=== PATIENT | male | born 1985 | race Caucasian/White ===

== ENCOUNTER 2022-01-01 15:51 | Inpatient (IN) | payer BC, SELFPAY ==
[2022-01-01] VITALS (10 sets, daily range): BP systolic 111–163; BP diastolic 49–91; PULSE 86–111; RESP 12–24; TEMP 37–37.3; O2SAT 96–100; BMI 23.5; BMI 23.8
--- NOTE | 2022-01-01 15:59 | W.ED.GENADLT ---
HPI - General Adult General: Chief complaint: General Medical Stated complaint: hyperglycemia Time Seen by Provider: 01/01/22 15:51 Source: patient and EMS Mode of arrival: EMS Limitations: no limitations History of Present Illness: This patient known insulin requiring diabetic who has an insulin pump states that he is down here on a float trip with family. He states over the past week or so he has had some difficulty with his insulin infusion set up in that the needle that penetrates his skin to allow his continuous infusion has been somewhat difficult to keep under his skin. He he states he was out floating with the family today and became progressively weak and realize he was getting dehydrated and that likely his blood sugar was elevated. He wind up calling EMS to be transported. EMS noted his blood sugar was elevated in the 500 range gave him a fluid bolus as well as Zofran and his blood sugars were down in the 400s during transport. Patient denies any ongoing fever, recent illness, abdominal pain etc. He has had several bouts of emesis this afternoon. No one else is ill at his green party. He otherwise has no chronic illness. He denies any alcohol intake today. Associated symptoms: Reports nausea and vomiting; Deny chest pain, dyspnea, headache(s), rash, palpitations or syncope Review of Systems Const: Reports: fatigue; Denies: fever(s), chills or body aches Eyes: Denies: change in vision or blurry vision ENMT: Denies: throat pain or odynophagia Card: Denies: chest pain, palpitations, irregular heart rhythm, syncope or pre-syncope Resp: Denies: dyspnea, productive cough or non-productive cough GI: Reports: nausea and vomiting; Denies: abdominal pain, hematemesis or diarrhea : Denies: flank pain, difficulty urinating, dysuria or urinary frequency Musc: Denies: neck pain, back pain, extremity pain or extremity swelling Skin/Breast: Denies: rash Neuro: Denies: headache(s), numbness in extremities or weakness in extremities Psych: Denies: anxiety or depression Physical Exam Narrative: EXAM NARRATIVE: Makes good eye contact. His speech is goal-directed. He is alert and cooperative. Const: COMMON NORMALS: no acute distress, average body habitus and patient oriented x3 GENERAL APPEARANCE: cooperative and comfortable HENMT: COMMON NORMALS: normocephalic, atraumatic, Normal nasal mucous membranes and turbinates present, moist oral mucous membranes and oropharynx normal HEAD & SCALP: normocephalic and atraumatic NOSE: Normal nasal mucous membranes and turbinates present Eye: COMMON NORMALS: Equal, round and reactive pupils present, EOMs intact bilaterally and conjunctivae normal CONJUNCTIVA: Yes conjunctivae normal PUPIL: Yes Equal, round and reactive pupils present Neck/C-Spine: COMMON NORMALS: full ROM and no lymphadenopathy Chest: COMMONS NORMALS: normal inspection of the chest Resp: COMMON NORMALS: normal respiratory effort, No retractions, No use of accessory muscles and clear to auscultation bilaterally AUSCULTATION: clear to auscultation bilaterally Cardio: COMMON NORMALS: regular rate, regular rhythm, No murmurs present (Cardio) and Peripheral pulses 2+ throughout RATE: regular rate RHYTHM: regular rhythm PERIPHERAL PULSES: Peripheral pulses 2+ throughout GI: COMMON NORMALS: Normal to inspection, nondistended, normoactive bowel sounds present, Soft to palpation, non-tender and no masses PALPATION: Yes Soft to palpation Back/Pelvis: COMMON NORMALS: thoracic and lumbar spine normal to inspection, no thoracic nor lumbar tenderness and thoraco-lumbar ROM normal Extremity: COMMON NORMALS: normal to inspection, full ROM, capillary refill normal and no pedal edema Neuro: COMMON NORMALS: patient oriented x3, moves all extremities, no focal motor deficits and no sensory deficits noted CRANIAL NERVES: Yes CN normal except as noted Psych: COMMON NORMALS: mental status grossly normal Skin: COMMON NORMALS: no rashes or lesions noted, no wounds and turgor normal GENERAL SKIN EXAM: no rashes or lesions noted and turgor normal Course Reevaluation(s): Reevaluation #1: We will cover him with subcutaneous insulin for the next or 2 until his pump is really connected. Time: 16:27 Reevaluation #2: Patient is doing well. His sugars are down in the 230 mg percent range at this time. In addition to the 8 units of regular insulin he received when he first arrived he is now able to reimplant his insulin pump and it is functioning normally. He has had 2 L of fluids and is drinking considerable amount of fluids. He is alert and hungry and is eating as well as drinking. Go ahead and repeat a chemistry to ensure that his gap is closing somewhat prior to discussion of discharge. Time: 18:51 Reevaluation #3: The patient is doing well. He is eating and drinking and his blood sugars are again in a more reasonable range. His CO2 and gap are still significant. I discussed with the patient and also discussed with the hospitalist. We will go ahead and give him additional fluids over the next hour and then reassess him at that time. Time: 20:06 Consultations: Consultation #1: Discussed with hospitalist we will go ahead and place him in observation continue with hydration and monitor his electrolytes and sugars. Time: 21:11 Vital Signs: Vital signs: Vital Signs Pulse Rate 107 H 01/01/22 18:16 Respiratory Rate 20 H 01/01/22 18:16 Blood Pressure 111/49 01/01/22 18:16 Pulse Oximetry 100 01/01/22 18:16 MDM - General Adult Medical Decision Making Patient with a longstanding history of diabetes on insulin pump was having a malfunction of his insulin pump over the past several days. He is visiting here and was on the [place] the [place] a float trip and became dehydrated and had persistent vomiting with elevated blood sugars. We have attempted to hydrate him in the emergency department and his sugars have come down nicely however he still has a significant gap and dehydration I think would be in his best interest to continue hydration and antiemetics and monitoring as an observation patient. No evidence of other ongoing conditions at this time. Lab Data : 01/01/22 16:00 01/01/22 19:09 Laboratory Results WBC 16.2 10^3/uL (4.0-10.0) H 01/01/22 16:00 RBC 5.35 10^6/uL (4.1-5.3) H 01/01/22 16:00 Hgb 15.8 g/dL (11.7-16.6) 01/01/22 16:00 Hct 47.9 % (42.0-52.0) 01/01/22 16:00 MCV 89.5 fl (80-94) 01/01/22 16:00 MCH 29.5 pg (28.0-34.0) 01/01/22 16:00 MCHC 33.0 g/dL (30.0-36.0) 01/01/22 16:00 RDW 12.0 % (12.1-15.1) L 01/01/22 16:00 Plt Count 431 10^3/cmm (130-400) H 01/01/22 16:00 MPV 11.5 fL (7.4-10.4) H 01/01/22 16:00 Neut % (Auto) 88.1 % 01/01/22 16:00 Lymph % (Auto) 5.5 % 01/01/22 16:00 [place] % (Auto) 5.2 % 01/01/22 16:00 Eos % (Auto) 0.1 % 01/01/22 16:00 Baso % (Auto) 0.4 % 01/01/22 16:00 Neut # (Auto) 14.25 10^3/uL (1.8-7.7) H 01/01/22 16:00 Lymph # (Auto) 0.9 10^3/uL (0.8-4.8) 01/01/22 16:00 [place] # (Auto) 0.8 10^3/uL (0.2-0.9) 01/01/22 16:00 Eos # (Auto) 0.0 10^3/uL (0.0-0.8) 01/01/22 16:00 Baso # (Auto) 0.1 10^3/uL (0.0-0.1) 01/01/22 16:00 Nucleated RBC % (auto) 0 % 01/01/22 16:00 Nucleated RBCs # 0.0 /100WBC 01/01/22 16:00 Sodium 134 mmol/L (136-145) L 01/01/22 19:09 Potassium 4.8 mmol/L (3.5-5.1) 01/01/22 19:09 Chloride 98 mmol/L (98-107) 01/01/22 19:09 Carbon Dioxide 11 mmol/L (22-29) L 01/01/22 19:09 Anion Gap 29.8 (5-19) H 01/01/22 19:09 BUN 24 mg/dL (6-20) H 01/01/22 19:09 Creatinine 1.0 mg/dL (0.7-1.2) 01/01/22 19:09 GFR Calculation 84.1 mL/min (90-130) L 01/01/22 19:09 Glucose 273 mg/dL (65-115) H 01/01/22 19:09 POC Glucose 253 mg/dL (70-110) H 01/01/22 18:40 Calculated Osmolality 292 mOsm/kg (285-295) 01/01/22 19:09 Calcium 8.2 mg/dL (8.5-10.5) L 01/01/22 19:09 Total Bilirubin 0.8 mg/dL (0.15-1.2) 01/01/22 16:00 AST 27 U/L (0-40) 01/01/22 16:00 ALT 24 U/L (0-41) 01/01/22 16:00 Alkaline Phosphatase 87 IU/L (40-130) 01/01/22 16:00 Total Protein 8.0 g/dL (6.6-8.7) 01/01/22 16:00 Albumin 5.4 g/dL (3.5-5.2) H 01/01/22 16:00 Globulin 2.6 g/dL (1.3-4.6) 01/01/22 16:00 Urine Color Yellow (Yellow) 01/01/22 16:06 Urine Appearance Clear (CLEAR) 01/01/22 16:06 Urine pH 5 (5-7) 01/01/22 16:06 Ur Specific [place] 1.020 (1.005-1.030) 01/01/22 16:06 Urine Protein Neg (Negative) 01/01/22 16:06 Urine Glucose (UA) 4+ (Normal) H 01/01/22 16:06 Urine Ketones 3+ (Negative) H 01/01/22 16:06 Urine Blood Neg (Negative) 01/01/22 16:06 Urine Nitrate Negative (Negative) 01/01/22 16:06 Urine Bilirubin Neg (Negative) 01/01/22 16:06 Urine Urobilinogen Norm mg/dL (Negative) 01/01/22 16:06 Ur Leukocyte Esterase Negative (Negative) 01/01/22 16:06 Serum Ketones Positive (Negative) H 01/01/22 16:00 Discharge Plan Discharge Patient Disposition: Placed in Observation Clinical Impression: Acute hyperglycemia, Acidosis due to type 1 diabetes mellitus, Fluid volume depletion Condition: Stable Coding Level of Care Code ED Hourly Team Members for Chg Fwd Exam Comprehensive
[2022-01-01 16:06] LABS: Basophils # 0.1 10^3/uL (0.0-0.1); Basophils % 0.4 %; Eosinophils % 0.1 %; Hematocrit 47.9 % (42.0-52.0); Hemoglobin 15.8 g/dL (11.7-16.6); Lymphocytes # 0.9 10^3/uL (0.8-4.8); Lymphocytes % 5.5 %; Mean Corpuscular Hemoglobin 29.5 pg (28.0-34.0); Mean Corpuscular Volume 89.5 fl (80-94); Mean Platelet Volume 11.5 fL (7.4-10.4); Monocytes # 0.8 10^3/uL (0.2-0.9); Monocytes % 5.2 %; Neutrophils # 14.25 10^3/uL (1.8-7.7); Neutrophils % 88.1 %; Nucleated Red Blood Cells % 0 %; Platelet Count 431 10^3/cmm (130-400); Red Blood Count 5.35 10^6/uL (4.1-5.3); White Blood Count 16.2 10^3/uL (4.0-10.0)
[2022-01-01] MEDS: lactated ringers 1,000 ML 999 ML IV ×2 (16:07→20:16)
[2022-01-01 16:08] LABS: Glucose Point of Care 454 mg/dL (70-110)
[2022-01-01 16:13] LABS: Add Urine Microscopic? NO; Charge for UA Resulting for Rev
[2022-01-01 16:26] LABS: Alanine Aminotransferase 24 U/L (0-41); Albumin Level 5.4 g/dL (3.5-5.2); Alkaline Phosphatase 87 IU/L (40-130); Aspartate Amino Transferase 27 U/L (0-40); Carbon Dioxide 13 mmol/L (22-29); Chloride 84 mmol/L (98-107); Globulin 2.6 g/dL (1.3-4.6); Sodium 130 mmol/L (136-145); Total Bilirubin 0.8 mg/dL (0.15-1.2)
[2022-01-01 16:29] LABS: Ketone (Acetest) Serum Positive (Negative)
[2022-01-01 16:32] LABS: Urine Appearance Clear (CLEAR); Urine Color Yellow (Yellow); pH Urine 5 (5-7)
[2022-01-01 16:33] LABS: Bilirubin Urine Neg (Negative); Blood Urine Neg (Negative); Glucose Urine UA 4+ (Normal); Ketones Urine 3+ (Negative); Leukocyte Esterase Urine Negative (Negative); Nitrate Urine Negative (Negative); Protein Urine Neg (Negative); Urobilinogen Urine Norm (Negative)
[2022-01-01 17:01] LABS: Glucose Point of Care 428 mg/dL (70-110)
[2022-01-01] MEDS: insulin lispro 100 unit/1 mL 8 UNIT SUBCUT (17:02)
[2022-01-01 17:13] LABS: Anion Gap 38.2 (5-19); Blood Urea Nitrogen 28 mg/dL (6-20); Glomerular Filtration Rate 68.1 mL/min (90-130); Osmolality Calculated 301 mOsm/kg (285-295); Potassium 5.2 mmol/L (3.5-5.1)
[2022-01-01 17:14] LABS: Calcium 9.8 mg/dL (8.5-10.5)
[2022-01-01 17:17] LABS: Glucose 557 mg/dL (65-115)
[2022-01-01 17:44] LABS: Glucose Point of Care 381 mg/dL (70-110)
[2022-01-01 18:42] LABS: Glucose Point of Care 253 mg/dL (70-110)
--- NOTE | 2022-01-01 18:55 | PC.NURSE ---
PT placed on continuous NIBP, SpO2, and CM
[2022-01-01 19:30] LABS: Anion Gap 29.8 (5-19); Blood Urea Nitrogen 24 mg/dL (6-20); Calcium 8.2 mg/dL (8.5-10.5); Carbon Dioxide 11 mmol/L (22-29); Chloride 98 mmol/L (98-107); Glomerular Filtration Rate 84.1 mL/min (90-130); Glucose 273 mg/dL (65-115); Osmolality Calculated 292 mOsm/kg (285-295); Potassium 4.8 mmol/L (3.5-5.1); Sodium 134 mmol/L (136-145)
[2022-01-01 21:13] LABS: Glucose Point of Care 181 mg/dL (70-110)
[2022-01-01] MEDS: ondansetron 2 mg/ML SDV 2 mL 4 MG IVP (21:17)
--- NOTE | 2022-01-01 21:24 | P.HP_ITS ---
Providers/Chief Complaint Chief Complaint: hyperglycemia History of Present Illness Piter Dunn is a 36 year old male with past medical history of diabetes on insulin pump, came in with chief complaint of weakness, nausea and vomiting, started today he was having difficulty using his insulin pump for about a week time, he was out floating today with the family and then he started experiencing above-mentioned complaint. When EMS arrived on the scene his blood sugar was in 500s. Upon arrival in the ER he was found to be in DKA. He has been continued on insulin pump, as well as currently on DKA protocol. Review of Systems General: Reports: 10 or more systems reviewed and unremarkable except in HPI and below Narrative: 67-year-old currently not in acute distress being admitted for chest pain evaluation Const: Denies: fever(s), chills, body aches, change in appetite or diaphoresis Card: Denies: palpitations, edema, swelling of feet/ankles, dyspnea on exertion, orthopnea or leg pain with exertion Resp: Denies: dyspnea, productive cough, wheezing or pain on inspiration GI: Reports: nausea and vomiting; Denies: abdominal pain, diarrhea or constipation : Denies: flank pain or difficulty urinating Musc: Denies: back pain, extremity pain or extremity swelling Neuro: Denies: headache(s), difficulty walking or confusion Medications/Allergies Allergies Allergy/AdvReac Type Severity Reaction Status Date / Time No Known Allergies Allergy Verified 01/01/22 16:26 Vitals/I&O/Wt Last Vital Signs Pulse 107 H 01/01/22 18:16 Resp 20 H 01/01/22 18:16 BP 111/49 01/01/22 18:16 Pulse Ox 100 01/01/22 18:16 Weight last 48 hrs Weight 68.039 kg Physical Exam Const: COMMON NORMALS: patient oriented x3 HENMT: COMMON NORMALS: normocephalic and atraumatic HEAD & SCALP: normocephalic and atraumatic Resp: COMMON NORMALS: clear to auscultation bilaterally AUSCULTATION: clear to auscultation bilaterally Cardio: COMMON NORMALS: regular rate, regular rhythm, S1 normal heart sound present, S2 normal heart sound present, No gallops present (Cardio), No murmurs present (Cardio), No rub (Cardio) and Peripheral pulses 2+ throughout RATE: regular rate RHYTHM: regular rhythm HEART SOUNDS: S1 normal heart sound present and S2 normal heart sound present PERIPHERAL PULSES: Peripheral pulses 2+ throughout GI: COMMON NORMALS: Normal to inspection, nondistended, normoactive bowel sounds present, Soft to palpation, non-tender, No hepatosplenomegaly present and no masses AUSCULTATION: Yes normoactive bowel sounds PALPATION: Yes Soft to palpation and Yes No hepatosplenomegaly present RECTAL EXAM: Yes deferred Extremity: COMMON NORMALS: no clubbing, cyanosis or edema and no pedal edema Neuro: COMMON NORMALS: patient oriented x3 Data : 01/02/22 03:17 01/02/22 03:17 A&P Assessment and plan (1) Diabetes: Status: Acute (2) Dehydration: Status: Acute (3) Metabolic acidosis: Status: Acute (4) DKA (diabetic ketoacidosis): Status: Acute Plan 36 year old male with past medical history of diabetes on insulin pump, came in with chief complaint of weakness, nausea and vomiting, started today. Assessment: DKA. Increased anion gap metabolic acidosis secondary to DKA Dehydration Plan: Currently his insulin pump is working patient will continue with his insulin pump. We will continue to monitor his BMP electrolytes finger stick glucose and accordingly make necessary changes. Lovenox for DVT prophylaxis. CODE STATUS: Full code Attestations Medical Necessity Statement*: Patient is to be in hospital for management of DKA. Anticipated length of stay greater than 2 midnights. Time Spent in Patient Care: Greater than 35 minutes (>than 50% of time spe nt in counselling and/or direct pt care on unit) . Coding Level of Care Code Acute Stringed Instrument Repairer for [facility] Fwd Exam Detailed Diagnoses Diabetes E11.9 Dehydration E86.0 Metabolic acidosis E87.2 DKA (diabetic ketoacidosis) E11.10
[2022-01-01 21:28] LABS: ABG PCO2 30.3 mmHg (35-45); ABG PH Result 7.27 (7.35-7.45); Alveolar-Arterial Oxygen Gradi 3.5 mmHg (5-10); Arterial Blood Gas Hematocrit 39.8 % (42-52); Base Excess ABG -11.7 mmol/L (-2.0-2.0); Blood Gas Allen Test Pos; Blood Gas Sample Site Radial, left; Blood Gas Sample Type Arterial; Carboxyhemoglobin 0.5 %THgb (0.4-20.1); HCO3 ABG 13.9 mmol/L (22-26); HGB O2 Sat 95.2 % (95-100); Ionized Calcium Level - ABG 1.2 mmol/L (1.1-1.4); Methemoglobin 0.8 % (0.4-1.5); Oxygen Device ROOM AIR; Oxygen Saturation ABG 96.4; PO2 ABG 82.4 mmHg (80.0-100.0); Potassium Level - ABG 4.2 mmol/L (3.5-5.0)
--- NOTE | 2022-01-01 22:48 | PC.NURSE ---
Arrived to Med Surg floor @[id number]. Charge Nurse notified pt was to be moved to ICU per MD request. Report given to ANUPAM Ledesma @ [phone]. Transported pt to ICU
[2022-01-01] MEDS: enoxaparin 40 mg/0.4 mL Syringe SUBCUT (23:07)
[2022-01-01] MEDS: lactated ringers 1,000 ML 125 ML IV (23:09)
[2022-01-01 23:24] LABS: Glucose Point of Care 129 mg/dL (70-110)
[2022-01-02] VITALS (37 sets, daily range): BP systolic 123–180; BP diastolic 63–99; PULSE 75–101; RESP 4–27; TEMP 36.6–36.9; O2SAT 95–100
[2022-01-02 00:16] LABS: Glucose Point of Care 117 mg/dL (70-110)
[2022-01-02 01:09] LABS: Anion Gap 20.4 (5-19); Blood Urea Nitrogen 19 mg/dL (6-20); Calcium 8.2 mg/dL (8.5-10.5); Carbon Dioxide 18 mmol/L (22-29); Chloride 99 mmol/L (98-107); Glucose 119 mg/dL (65-115); Osmolality Calculated 279 mOsm/kg (285-295); Potassium 4.4 mmol/L (3.5-5.1); Sodium 133 mmol/L (136-145)
[2022-01-02] MEDS: ondansetron 2 mg/ML SDV 2 mL 4 MG IVP (02:13)
[2022-01-02 02:20] LABS: Glucose Point of Care 128 mg/dL (70-110)
[2022-01-02 03:19] LABS: Glucose Point of Care 108 mg/dL (70-110)
[2022-01-02 03:43] LABS: Basophils % 0.1 %; Eosinophils % 0.1 %; Hematocrit 36.7 % (42.0-52.0); Hemoglobin 12.8 g/dL (11.7-16.6); Lymphocytes # 0.8 10^3/uL (0.8-4.8); Lymphocytes % 5.8 %; Mean Corpuscular HGB Conc 34.9 g/dL (30.0-36.0); Mean Corpuscular Hemoglobin 29.4 pg (28.0-34.0); Mean Corpuscular Volume 84.2 fl (80-94); Mean Platelet Volume 10.5 fL (7.4-10.4); Monocytes # 1.1 10^3/uL (0.2-0.9); Monocytes % 7.9 %; Neutrophils # 11.85 10^3/uL (1.8-7.7); Neutrophils % 85.7 %; Nucleated Red Blood Cells % 0 %; Platelet Count 323 10^3/cmm (130-400); Red Blood Count 4.36 10^6/uL (4.1-5.3); White Blood Count 13.8 10^3/uL (4.0-10.0)
[2022-01-02 04:03] LABS: Alanine Aminotransferase 19 U/L (0-41); Albumin Level 4.1 g/dL (3.5-5.2); Alkaline Phosphatase 58 IU/L (40-130); Anion Gap 21.4 (5-19); Aspartate Amino Transferase 20 U/L (0-40); Blood Urea Nitrogen 16 mg/dL (6-20); Calcium 8.1 mg/dL (8.5-10.5); Carbon Dioxide 17 mmol/L (22-29); Chloride 99 mmol/L (98-107); Globulin 1.8 g/dL (1.3-4.6); Glomerular Filtration Rate 108.8 mL/min (90-130); Glucose 110 mg/dL (65-115); Magnesium 1.9 mg/dL (1.7-2.3); Osmolality Calculated 278 mOsm/kg (285-295); Phosphorus 3.5 mg/dL (2.5-4.5); Potassium 4.4 mmol/L (3.5-5.1); Sodium 133 mmol/L (136-145); Total Bilirubin 0.7 mg/dL (0.15-1.2); Total Protein 5.9 g/dL (6.6-8.7)
[2022-01-02 05:23] LABS: Glucose Point of Care 116 mg/dL (70-110)
[2022-01-02 06:41] LABS: Glucose Point of Care 117 mg/dL (70-110)
[2022-01-02] MEDS: lactated ringers 1,000 ML 125 ML IV (07:09)
[2022-01-02 07:52] LABS: Glucose Point of Care 115 mg/dL (70-110)
[2022-01-02 08:50] LABS: Glucose Point of Care 136 mg/dL (70-110)
[2022-01-02] MEDS: dextrose 5%-sod chloride 0.45% 1,000 ML 150 ML IV (10:10)
[2022-01-02] MEDS: insulin regular-human 250 UNIT in sodium chloride 0.9% 250 ML IV (10:16)
[2022-01-02 10:24] LABS: Glucose Point of Care 167 mg/dL (70-110)
[2022-01-02 10:59] LABS: Glucose Point of Care 223 mg/dL (70-110)
[2022-01-02 12:10] LABS: Glucose Point of Care 155 mg/dL (70-110)
[2022-01-02] MEDS: cetylpyridinium Lozenge 1 EACH MUCOUS MEM (13:00)
[2022-01-02 14:04] LABS: Glucose Point of Care 176 mg/dL (70-110)
[2022-01-02 14:26] LABS: Anion Gap 12.8 (5-19); Blood Urea Nitrogen 12 mg/dL (6-20); Calcium 8.4 mg/dL (8.5-10.5); Carbon Dioxide 24 mmol/L (22-29); Chloride 99 mmol/L (98-107); Glomerular Filtration Rate 108.8 mL/min (90-130); Glucose 183 mg/dL (65-115); Magnesium 1.9 mg/dL (1.7-2.3); Osmolality Calculated 278 mOsm/kg (285-295); Potassium 3.8 mmol/L (3.5-5.1); Sodium 132 mmol/L (136-145)
[2022-01-02 14:34] LABS: Glucose Point of Care 215 mg/dL (70-110)
[2022-01-02 15:19] LABS: Glucose Point of Care 131 mg/dL (70-110)
--- NOTE | 2022-01-02 15:28 | P.DS_ITS ---
Discharge Providers Date of Admission: 01/01/22 21:14 Date of Discharge: January 02, 2022 Attending Provider at Admission: Daron Urias MD Attending Provider at Discharge: Gerber Resendiz Diagnoses at Discharge Discharge Diagnosis (1) Diabetes: Status: Acute (2) Dehydration: Status: Acute (3) Metabolic acidosis: Status: Acute (4) DKA (diabetic ketoacidosis): Status: Acute Reason for Visit Reason for Visit: hyperglycemia Hospital Course Hospital Course 36-year-old gentleman with DM1 was in the area on a floating trip, with difficulty to keep his insulin pump access, with access dislodged, was not receiving insulin for a while, became dehydrated, came in with weakness, nausea, had recurrent episodes of vomiting, blood glucose in 500s, on presentation with dehydration, as well as DKA. 7.27/30.3/82.4. With leukocytosis 16.2. Afebrile. Initially was resumed on insulin pump along was receiving IV hydration, antiemetics. Symptoms overall improved, glucose improved, anion gap decreased from 38.2 down to 20.4, but with slight worsening this morning 21.4, bicarb improved from 13- 18, but with slight worsening this morning to 17. Given persistent acidosis insulin pump was temporarily paused, was switched to insulin drip, IV hydration adjusted, additionally given spot replacement of p.o. phosphorus for hypophosphatemia, phosphorus of 2. Anion gap and bicarb normalized. Resumed on insulin pump infusion, drip discontinued. He has been tolerating oral intake. He is intent on leaving the hospital today, and is not willing to stay for reassessment, ready to leave A if needed. He tells me he understands to seek medical attention in case of any worsening in his condition. Instructed to seek medical attention. In case of pump malfunction. He is asked to follow-up with both his primary provider and member of the legislative council. Physical Exam Narrative: On second visit/reassessment he is telling me he is feeling even better. Const: COMMON NORMALS: alert GENERAL APPEARANCE: cooperative ORIENTATION/CONSCIOUSNESS: Yes awake HENMT: COMMON NORMALS: normocephalic, EAC's normal, Normal external nose present and moist oral mucous membranes HEAD & SCALP: normocephalic NOSE: Normal external nose present EXTERNAL AUDITORY CANAL: EAC's normal Neck/C-Spine: COMMON NORMALS: no meningeal signs Chest: CHEST: Yes Symmetrical chest wall rise Resp: COMMON NORMALS: clear to auscultation bilaterally AUSCULTATION: clear to auscultation bilaterally Cardio: COMMON NORMALS: regular rate, regular rhythm and No murmurs present (Cardio) RATE: regular rate RHYTHM: regular rhythm GI: COMMON NORMALS: Normal to inspection, nondistended, normoactive bowel sounds present, Soft to palpation and non-tender PALPATION: Yes Soft to palpation Extremity: COMMON NORMALS: no pedal edema Neuro: COMMON NORMALS: moves all extremities SENSORIUM/ORIENTATION: Yes alert MENINGEAL SIGNS: Yes no meningeal signs Psych: COMMON NORMALS: mental status grossly normal Skin: COMMON NORMALS: no wounds RASHES: no rashes Discharge Data Studies Completed and Pending Pending at discharge Category Date Time Status Complete Blood Count w/Auto AM LABS Lab 01/03/22 04:00 Ordered Complete Blood Count w/Auto AM LABS Lab 01/04/22 04:00 Ordered Comprehensive Metabolic Panel AM LABS Lab 01/03/22 04:00 Ordered Comprehensive Metabolic Panel AM LABS Lab 01/04/22 04:00 Ordered Laboratory Results WBC 13.8 10^3/uL (4.0-10.0) H 01/02/22 03:17 RBC 4.36 10^6/uL (4.1-5.3) 01/02/22 03:17 Hgb 12.8 g/dL (11.7-16.6) 01/02/22 03:17 Hct 36.7 % (42.0-52.0) L 01/02/22 03:17 MCV 84.2 fl (80-94) D 01/02/22 03:17 MCH 29.4 pg (28.0-34.0) 01/02/22 03:17 MCHC 34.9 g/dL (30.0-36.0) D 01/02/22 03:17 RDW 12.0 % (12.1-15.1) L 01/02/22 03:17 Plt Count 323 10^3/cmm (130-400) 01/02/22 03:17 MPV 10.5 fL (7.4-10.4) H 01/02/22 03:17 Neut % (Auto) 85.7 % 01/02/22 03:17 Lymph % (Auto) 5.8 % 01/02/22 03:17 [place] % (Auto) 7.9 % 01/02/22 03:17 Eos % (Auto) 0.1 % 01/02/22 03:17 Baso % (Auto) 0.1 % 01/02/22 03:17 Neut # (Auto) 11.85 10^3/uL (1.8-7.7) H 01/02/22 03:17 Lymph # (Auto) 0.8 10^3/uL (0.8-4.8) 01/02/22 03:17 [place] # (Auto) 1.1 10^3/uL (0.2-0.9) H 01/02/22 03:17 Eos # (Auto) 0.0 10^3/uL (0.0-0.8) 01/02/22 03:17 Baso # (Auto) 0.0 10^3/uL (0.0-0.1) 01/02/22 03:17 Nucleated RBC % (auto) 0 % 01/02/22 03:17 Nucleated RBCs # 0.0 /100WBC 01/02/22 03:17 Specimen Type Arterial 01/01/22 21:17 Sample Site Radial, left 01/01/22 21:17 ABG pH 7.27 (7.35-7.45) L 01/01/22 21:17 ABG pCO2 30.3 mmHg (35-45) L 01/01/22 21:17 ABG pO2 82.4 mmHg (80.0-100.0) 01/01/22 21:17 ABG HCO3 13.9 mmol/L (22-26) L 01/01/22 21:17 ABG O2 Saturation 96.4 01/01/22 21:17 ABG Base Excess -11.7 mmol/L (-2.0-2.0) L 01/01/22 21:17 Aki Test Pos 01/01/22 21:17 A-a O2 Gradient 3.5 mmHg (5-10) L 01/01/22 21:17 Hematocrit 39.8 % (42-52) L 01/01/22 21:17 Hgb O2 Saturation 95.2 % (95-100) 01/01/22 21:17 Carboxyhemoglobin 0.5 %THgb (0.4-20.1) 01/01/22 21:17 Methemoglobin 0.8 % (0.4-1.5) 01/01/22 21:17 Total Hemoglobin 13.0 g/dL (14-18) L 01/01/22 21:17 Sodium 133.0 mmol/L (131-143) 01/01/22 21:17 Potassium 4.2 mmol/L (3.5-5.0) 01/01/22 21:17 Glucose 178.0 mg/dL (70-115) H 01/01/22 21:17 Ionized Calcium 1.2 mmol/L (1.1-1.4) 01/01/22 21:17 O2 Delivery Device Room air 01/01/22 21:17 Casino Investigator ID Buttr 01/01/22 21:17 Sodium 132 mmol/L (136-145) L 01/02/22 14:01 Potassium 3.8 mmol/L (3.5-5.1) 01/02/22 14:01 Chloride 99 mmol/L (98-107) 01/02/22 14:01 Carbon Dioxide 24 mmol/L (22-29) 01/02/22 14:01 Anion Gap 12.8 (5-19) 01/02/22 14:01 BUN 12 mg/dL (6-20) 01/02/22 14:01 Creatinine 0.8 mg/dL (0.7-1.2) 01/02/22 14:01 GFR Calculation 108.8 mL/min (90-130) 01/02/22 14:01 Glucose 183 mg/dL (65-115) H 01/02/22 14:01 POC Glucose 131 mg/dL (70-110) H 01/02/22 15:16 Calculated Osmolality 278 mOsm/kg (285-295) L 01/02/22 14:01 Calcium 8.4 mg/dL (8.5-10.5) L 01/02/22 14:01 Phosphorus 2.0 mg/dL (2.5-4.5) L 01/02/22 14:01 Magnesium 1.9 mg/dL (1.7-2.3) 01/02/22 14:01 Total Bilirubin 0.7 mg/dL (0.15-1.2) 01/02/22 03:17 AST 20 U/L (0-40) 01/02/22 03:17 ALT 19 U/L (0-41) 01/02/22 03:17 Alkaline Phosphatase 58 IU/L (40-130) 01/02/22 03:17 Total Protein 5.9 g/dL (6.6-8.7) L D 01/02/22 03:17 Albumin 4.1 g/dL (3.5-5.2) 01/02/22 03:17 Globulin 1.8 g/dL (1.3-4.6) 01/02/22 03:17 Urine Color Yellow (Yellow) 01/01/22 16:06 Urine Appearance Clear (CLEAR) 01/01/22 16:06 Urine pH 5 (5-7) 01/01/22 16:06 Ur Specific [place] 1.020 (1.005-1.030) 01/01/22 16:06 Urine Protein Neg (Negative) 01/01/22 16:06 Urine Glucose (UA) 4+ (Normal) H 01/01/22 16:06 Urine Ketones 3+ (Negative) H 01/01/22 16:06 Urine Blood Neg (Negative) 01/01/22 16:06 Urine Nitrate Negative (Negative) 01/01/22 16:06 Urine Bilirubin Neg (Negative) 01/01/22 16:06 Urine Urobilinogen Norm mg/dL (Negative) 01/01/22 16:06 Ur Leukocyte Esterase Negative (Negative) 01/01/22 16:06 Serum Ketones Positive (Negative) H 01/01/22 16:00 Vitals Last Vital Signs Temp 97.8 F 01/02/22 13:00 Pulse 94 01/02/22 13:00 Resp 26 H 01/02/22 13:00 BP 143/89 01/02/22 13:00 Pulse Ox 99 01/02/22 13:00 Discharge Plan Discharge Patient Disposition: Home Condition: Fair Prescriptions: New Sore Throat (benzocaine-menth) 15-3.6 mg Lozenge 1 ea mucous membrane Q2H PRN (Reason: Sore Throat) Qty: 15 0RF ondansetron 4 mg tablet,disintegrating 4 mg PO Q8H PRN (Reason: nausea and vomiting) 4 Days Qty: 10 0RF Continued Novolog U-100 Insulin aspart 100 unit/mL solution See Rx Instructions .ROUTE .COMPLEX 0RF Rx Instructions: sliding scale dose via insulin pump Discharge Orders: Discharge Order (Routine); Ordered 01/02/22 Ordered By: Gerber Resendiz Referrals: Primary, provider [Other] - 1-3 days Your, member of the legislative council [Other] - 4-7 days (DKA) Discharge Diet: Diabetic Patient Instructions: Ondansetron (By mouth), Benzocaine/Menthol (By mouth) (Cepacol Sore Throat, Chloraseptic,..., Diabetic Ketoacidosis (GEN), Meal Planning with Diabetes Exchanges (DC), Hypophosphatemia (GEN) Activity Restrictions/Additional Instructions: Please make sure your pump is always infusing properly. If you experience any worsening in your condition, severe weakness, dehydration, fever, chest pain, leg swelling, or any other concerning symptoms, or if your pump stops working seek medical attention immediately. Your phosphorus level was found to be mildly low. If able to, include dairy products. Follow-up with your primary doctor for reassessment. Discharge Attestations Time Spent in Discharge Care*: greater than 30 min Quality Metrics Clinical Quality Measures [ No reported AMI, CVA or VTE this stay] Coding Level of Care Code Acute Chg FW DC note Exam Comprehensive Diagnoses Diabetes E11.9 Dehydration E86.0 Metabolic acidosis E87.2 DKA (diabetic ketoacidosis) E11.10
[2022-01-02] MEDS: phosphorus 250 mg Tablet PO (15:32)
[2022-01-02 16:19] LABS: Glucose Point of Care 133 mg/dL (70-110)
[2022-01-02 17:15] LABS: Glucose Point of Care 121 mg/dL (70-110)
--- NOTE | 2022-01-02 17:45 | PC.NURSE ---
Patient DIscharged. IV rmeoved and catheter was intact. DKA and hypophosphatemia education provided. Prescriptions sent with patient. Unable to make appointments with his primary provider and endocronologiust on monday so he was instructed to do so on monday. Patient taken out via wheelchair to provate vehicle. Spouse accompanied patient.
== END 2022-01-02 17:47 | disposition home or self-care (01) | DRG 638 ==
LOC: ER 21:24 → ICU 01-02 07:44 → MEDSURG 01-02 10:59
PROVIDERS: Admitting Provider Internal Medicine; Emergency Provider Emergency Medicine; Visit Provider Internal Medicine
DX: E10.10 Type 1 diabetes mellitus with ketoacidosis without coma (principal); T85.614A Breakdown (mechanical) of insulin pump, initial encounter; Z96.41 Presence of insulin pump (external) (internal); E86.0 Dehydration
CPT/HCPCS: 36416; 36600; 80048; 80051; 80053; 81003; 82009; 82330; 82805; 82962; 83735; 84100; 85025; 96361; 96372; 96374; 99285; J1650; J1815; J2405; J7050; J7799